=== PATIENT | female | born 1965 | race Caucasian/White ===

== ENCOUNTER 2018-12-22 11:17 | Emergency (ER) | payer BC ==
[~2018-12-22] VITALS: Ht 167.6 cm; Wt 93.0 kg
[~2018-12-22 11:17] MED LIST: BUPR150T6 PO; DEXL60CA3 PO; DULO20CA50 PO; FURO-150 PO; HYDR-3136 PO; INSU100V36 SQ; LABE200T28 PO; LANTUS SQ; PRAV40TA65 PO
[2018-12-22] MEDS ORDERED: HYDR-4353 PO (12:00)
[2018-12-22 12:38] VITALS: BP 128/67
[2018-12-22] MEDS ORDERED: HYDROcodone/acetaminophen 10/325mg tab PO ONE (12:45)
== END 2018-12-22 12:51 | disposition home or self-care (01) ==
LOC: ER 11:17
DX: R07.81 Pleurodynia (principal); R07.89 Other chest pain; Z79.899 Other long term (current) drug therapy; Z96.611 Presence of right artificial shoulder joint; W18.09XA Striking against other object with subsequent fall, initial encounter; Y93.01 Activity, walking, marching and hiking; Y92.098 Other place in other non-institutional residence as the place of occurrence of the external cause; Y99.8 Other external cause status
CPT/HCPCS: 71101; 99284